=== PATIENT | female | born 1955 | race Caucasian/White ===

== ENCOUNTER → 2016-04-24 | Outpatient (CLI) | payer BC ==
[~2016-04-24] MED LIST: ALLGUNK; ATV1 PO; HYZUNK
[2016-04-24 11:46] LABS: BLOOD UREA NITROGEN 22 mg/dl (7-18); BUN/CREATININE RATIO 31.6 (10-20); CALCIUM 8.9 mg/dl (8.5-10.1); CARBON DIOXIDE 27 mmol/L (21-32); CHLORIDE 99 mmol/L (98-107); CHOLESTEROL 170 mg/dl (0-200); GLUCOSE 87 mg/dl (70-99); POTASSIUM 3.8 mmol/L (3.5-5.1); SODIUM 136 mmol/L (136-145); TRIGLYCERIDES 89 mg/dl (0-150); VERY LOW DENSITY LIPOPROT CALC 18 mg/dl
[2016-04-24 11:57] LABS: CHOLESTEROL/HDL RATIO 2.3; HDL CHOLESTEROL 74 mg/dl; LDL CHOLESTEROL CALCULATED 78 mg/dl
== END | disposition home or self-care (01) ==
LOC: C.LABBC 07:33
PROVIDERS: ATTEND Internal Medicine Geriatric Medicine
DX: E03.9 Hypothyroidism, unspecified (principal); I10 Essential (primary) hypertension; J45.909 Unspecified asthma, uncomplicated

== ENCOUNTER → 2016-05-29 | Outpatient (CLI) | payer BC ==
--- NOTE | 2016-05-30 10:56 | MAMMOGRAPHY REPORT ---
BILATERAL DIGITAL SCREENING MAMMOGRAM TOMOSYNTHESIS WITH CAD: 05/29/2016 CLINICAL HISTORY: Routine screening. Patient has no complaints. TECHNIQUE: Breast tomosynthesis in addition to standard 2D mammography was performed. Current study was also evaluated with a Computer Aided Detection (CAD) system. COMPARISON: Comparison is made to exams dated: 05/26/2015 mammogram, 12/05/2012 mammogram, 04/28/2014 m ammogram, 10/05/2011 mammogram, 09/09/2010 mammogram, and 07/12/2009 ultrasound - [facility]. BREAST COMPOSITION: The tissue of both breasts is heterogeneously dense, which may obscure small ma sses. FINDINGS: There are post operative findings in the right breast, with 2 stable linear metallic dens ities identified in the upper outer quadrant. No suspicious mass, architectural distortion or cluste r of microcalcifications is seen laterally. IMPRESSION: ACR BI-RADS CATEGORY 1: NEGATIVE There is no mammographic evidence of malignancy. A 1 year screening mammogram is recommended. The p atient will receive written notification of the results. Approximately 10% of breast cancers are not detected with mammography. A negative mammographic repor t should not delay biopsy if a clinically suggestive mass is present. Stacy Cm M.D. ay/:05/29/2016 18:02:35 Sample Tester Grinder: Qing MENDEZ(R)(M), [facility] letter sent: Normal 1/2 BI-RADS Code: ACR BI-RADS Category 1: Negative
== END | disposition home or self-care (01) ==
LOC: C.MAMM 08:35
PROVIDERS: ATTEND Internal Medicine Geriatric Medicine
DX: Z12.31 Encounter for screening mammogram for malignant neoplasm of breast (principal)

== ENCOUNTER → 2016-07-03 | Outpatient (CLI) | payer BC | END | disposition home or self-care (01) | LOC: C.PAPS 12:45 | PROVIDERS: ATTEND Obstetrics & Gynecology | DX: Z01.419 Encounter for gynecological examination (general) (routine) without abnormal findings (principal) ==

== ENCOUNTER → 2016-12-18 | Outpatient (CLI) | payer BC ==
--- NOTE | 2016-12-18 09:16 | DIAGNOSTIC IMAGING REPORT ---
CHEST 2 VIEWS ROUTINE CLINICAL HISTORY: 61 years-old Female presenting with J45.909 Asthma R05 Cough. TECHNIQUE: PA and lateral views of the chest were obtained. COMPARISON: 06/24/2014. FINDINGS: Atherosclerosis of aortic arch. Cardiac silhouette normal in size. Lungs and pleural spaces clear. Osseous structures normal. Upper abdomen normal. IMPRESSION: 1. No acute cardiopulmonary disease. Electronically signed by: Alfredo Horan M.D. 12/18/2016 9:15 AM Dictated Date/Time: 12/18/2016 9:15 AM
[2016-12-18 11:53] LABS: BLOOD UREA NITROGEN 17 mg/dl (7-18); BUN/CREATININE RATIO 24.9 (10-20); CALCIUM 9.3 mg/dl (8.5-10.1); CARBON DIOXIDE 28 mmol/L (21-32); CHLORIDE 94 mmol/L (98-107); CREATININE 0.67 mg/dl (0.60-1.20); GLUCOSE 111 mg/dl (70-99); POTASSIUM 3.6 mmol/L (3.5-5.1); SODIUM 131 mmol/L (136-145)
== END | disposition home or self-care (01) ==
LOC: C.RADBC 08:51
PROVIDERS: ATTEND Internal Medicine Geriatric Medicine
DX: J45.909 Unspecified asthma, uncomplicated (principal); R05 Cough; I10 Essential (primary) hypertension; Z11.59 Encounter for screening for other viral diseases; N95.1 Menopausal and female climacteric states

== ENCOUNTER → 2017-03-30 | Outpatient (CLI) | payer OTHER, BC | END | disposition home or self-care (01) | LOC: C.LAB1850 11:33 | PROVIDERS: ATTEND Obstetrics & Gynecology | DX: Z15.02 Genetic susceptibility to malignant neoplasm of ovary (principal) ==

== ENCOUNTER → 2017-05-04 | Outpatient (CLI) | payer OTHER, BC ==
--- NOTE | 2017-05-04 17:54 | DIAGNOSTIC IMAGING REPORT ---
LUMBAR SPINE MRI HISTORY: Back pain. Left leg pain. M54.16 Lumbar radiculopathy [id number] TECHNIQUE: Multiplanar multisequence MRI of the lumbar spine was performed without the use of contrast. COMPARISON: Lumbar spine 07/14/2015. FINDINGS: For the purpose of the report the L5-S1 disc space will be located on axial image 23 of 25. There is 2 mm of anterolisthesis of L4 and L5. Straightening of the lumbar spine. Mild to moderate facet degenerative changes at L4-L5 and L5-S1. The conus terminates at the T12-L1 disc space level. There is mild disc space narrowing and disc desiccation at L2-L3, L3-L4, L4-5, and L5-S1. 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 L1-L2: No significant central canal or neural foraminal narrowing. L2-L3: Small broad-based posterior disc bulge without significant central canal or neural foraminal narrowing. L3-L4: Small broad-based posterior disc bulge without significant central canal or neural foraminal narrowing. L4-L5: Broad-based posterior disc bulge, focal central disc protrusion, and significant ligamentum and facet hypertrophy resulting in severe central canal narrowing. The central canal measures a maximal diameter of 4 mm. This results in mass effect along the cauda equina at this level. The traversing nerve roots are tortuous and redundant due to the severe stenosis at this level. There is mild bilateral neural foraminal narrowing. L5-S1: Broad-based posterior disc bulge with a small left paracentral focal disc protrusion. This compresses the transiting left S1 nerve root. There is also mild to moderate bilateral neural foraminal narrowing. IMPRESSION: 1. Severe central canal stenosis at L4-L5 due to a broad-based posterior disc bulge, focal central disc protrusion, and ligamentum and facet hypertrophy. This results in mass effect along the cauda equina at this level. 2. Additional degenerative changes as described above. Electronically signed by: Álvaro Frausto M.D. 05/04/2017 5:53 PM Dictated Date/Time: 05/04/2017 5:41 PM
== END ==
LOC: C.MRIBC 16:33
PROVIDERS: ATTEND Physician Assistant Medical
DX: M54.16 Radiculopathy, lumbar region (principal); M48.061 Spinal stenosis, lumbar region without neurogenic claudication

== ENCOUNTER → 2017-07-17 | Outpatient (CLI) | payer OTHER, BC ==
[~2017-07-17] MED LIST changes: +ADVIN10/60 INH; -ALLGUNK; -ATV1 PO; +CLR10 PO; +CONJ0.3T3 PO; +HYZ/10015 PO; -HYZUNK; +IBUP-1459 PO; +SYN25 PO
== END | disposition home or self-care (01) ==
LOC: C.PAPS 11:42
PROVIDERS: ATTEND Obstetrics & Gynecology
DX: Z12.4 Encounter for screening for malignant neoplasm of cervix (principal)

== ENCOUNTER 2020-07-27 05:46 | Observation (INO) ==
--- NOTE | 2020-06-03 14:19 | PAT Medication Instructions ---
Medication Instructions Date of Service June 03, 2020 Home Medications Medication Instructions Recorded levothyroxine 25 mcg capsule 25 mcg PO QAM #90 cap 06/18/19 telmisartan 80 1 tab PO DAILY #90 tab 07/11/19 mg-hydrochlorothiazide 25 mg tablet benzonatate 200 mg capsule 200 mg PO TID PRN #30 cap 07/15/19 fluticasone 250 mcg-salmeterol 50 1 inh INH BID #60 ea 01/26/20 mcg/dose blistr powdr for inhalation amlodipine 10 mg tablet 10 mg PO DAILY #90 tab 02/26/20 albuterol sulfate 90 mcg/actuation 1 puff INH Q6H PRN #8 gm 03/22/20 aerosol inhaler fluticasone 500 mcg-salmeterol 50 1 inh INHALATION BID #60 ea 03/24/20 mcg/dose blistr powdr for inhalation hydrocodone 10 mg-chlorpheniramine 5 ml PO Q12H PRN #115 ml 03/24/20 8 mg/5 mL oral susp extend.rel 12hr meloxicam 15 mg tablet 15 mg PO DAILY #30 tab 03/24/20 3-in-1 Commode #1 ea 05/12/20 Wheeled Walker #1 ea 05/12/20 doxycycline hyclate 100 mg capsule 100 mg PO BID #20 cap 05/19/20 montelukast 10 mg tablet 10 mg PO QPM #30 tab 05/21/20 Probiotic 1 cap PO QPM ascorbate calcium (vitamin C) 500 mg tablet 500 mg PO QPM levothyroxine 25 mcg capsule 25 mcg PO QAM telmisartan 80 mg-hydrochlorothiazide 25 mg tablet 1 tab PO DAILY benzonatate 200 mg capsule 200 mg PO TID PRN fluticasone 250 mcg-salmeterol 50 mcg/dose blistr powdr for inhalation 1 inh INH BID amlodipine 10 mg tablet 10 mg PO DAILY albuterol sulfate 90 mcg/actuation aerosol inhaler 1 puff INH Q6H PRN fluticasone 500 mcg-salmeterol 50 mcg/dose blistr powdr for inhalation 1 inh INHALATION BID hydrocodone 10 mg-chlorpheniramine 8 mg/5 mL oral susp extend.rel 12hr 5 ml PO Q12H PRN meloxicam 15 mg tablet 15 mg PO DAILY doxycycline hyclate 100 mg capsule 100 mg PO BID montelukast 10 mg tablet 10 mg PO QPM Cbd Oil Gummies 1 dose PO QPM ascorbic acid-vitamin E-biotin [Hair, Skin, Nails with Biotin] 1 tab PO QPM cholecalciferol (vitamin D3) [Vitamin D3] 50 mcg PO QPM fexofenadine [Shabana] 180 mg PO QAM magnesium 500 mg PO QAM multivitamin 1 tab PO QPM potassium gluconate 595 mg PO QAM ASK your surgeon for instructions meloxicam 15 mg tablet 15 mg PO DAILY STOP taking 2 weeks before surgery If surgery is within 2 weeks, stop taking as soon as possible. ascorbic acid-vitamin E-biotin [Hair, Skin, Nails with Biotin] 1 tab PO QPM DO NOT take the morning of surgery telmisartan 80 mg-hydrochlorothiazide 25 mg tablet 1 tab PO DAILY benzonatate 200 mg capsule 200 mg PO TID PRN hydrocodone 10 mg-chlorpheniramine 8 mg/5 mL oral susp extend.rel 12hr 5 ml PO Q12H PRN doxycycline hyclate 100 mg capsule 100 mg PO BID fexofenadine [Shabana] 180 mg PO QAM magnesium 500 mg PO QAM potassium gluconate 595 mg PO QAM Take morning of surgery With a small sip of water, OTHERWISE NOTHING TO EAT OR DRINK AFTER MIDNIGHT: levothyroxine 25 mcg capsule 25 mcg PO QAM fluticasone 250 mcg-salmeterol 50 mcg/dose blistr powdr for inhalation 1 inh INH BID amlodipine 10 mg tablet 10 mg PO DAILY albuterol sulfate 90 mcg/actuation aerosol inhaler 1 puff INH Q6H PRN (if needed) fluticasone 500 mcg-salmeterol 50 mcg/dose blistr powdr for inhalation 1 inh INHALATION BID Take evening before surgery Probiotic 1 cap PO QPM ascorbate calcium (vitamin C) 500 mg tablet 500 mg PO QPM benzonatate 200 mg capsule 200 mg PO TID PRN (if needed) fluticasone 250 mcg-salmeterol 50 mcg/dose blistr powdr for inhalation 1 inh INH BID albuterol sulfate 90 mcg/actuation aerosol inhaler 1 puff INH Q6H PRN (if needed) fluticasone 500 mcg-salmeterol 50 mcg/dose blistr powdr for inhalation 1 inh INHALATION BID hydrocodone 10 mg-chlorpheniramine 8 mg/5 mL oral susp extend.rel 12hr 5 ml PO Q12H PRN (if needed) doxycycline hyclate 100 mg capsule 100 mg PO BID montelukast 10 mg tablet 10 mg PO QPM Cbd Oil Gummies 1 dose PO QPM cholecalciferol (vitamin D3) [Vitamin D3] 50 mcg PO QPM multivitamin 1 tab PO QPM Other Notes If you have any questions please call us at [phone] or [phone] or [phone] or [phone]
--- NOTE | 2020-06-07 08:59 | Anesthesiology Consultation ---
Date of Service June 07, 2020 Assessment & Plan (1) Encounter for pre-operative examination: COVID Status: As of 06/07 assessment, patient denies travel to endemic area, known exposure/sick contacts, or symptoms of COVID19. Patient instructed that they and their household members must follow strict social distancing guidelines, wear a mask in public and avoid travel/events/gatherings for 14 days prior to surgery. Preoperative COVID19 testing to be completed prior to surgery per surgeon's arrangements. Patient made aware to self-isolate as much as possible between COVID testing and surgery. Chart Review Chart Review: Acceptable Risk for Surgery and Patient seen in Pre Admission Testing Teaching & Discussion Instructed NPO after midnight before surgery, except medications with 15 cc of water. Medication instructions provided according to the PAT guidelines. History Surgery Operation Date: 07/02/20 10:55 Proposed Procedures p Left Total Hip Arthroplasty - Eh Hinton MD Height/Weight Height: 5 ft 2.5 in Weight: 63.8 kg Allergies Allergy/AdvReac Type Severity Reaction Status Date / Time clarithromycin [From Biaxin] Allergy Mild DRY COUGH Verified 05/25/20 12:00 Medications Home Medications Medication Instructions Recorded Confirmed Last Taken Probiotic 1 cap PO QPM 03/26/18 05/25/20 04/10/18 20:00 ascorbate calcium (vitamin C) 500 500 mg PO QPM 01/31/19 05/25/20 Unknown mg tablet levothyroxine 25 mcg capsule 25 mcg PO QAM #90 cap 06/18/19 05/25/20 Unknown telmisartan 80 1 tab PO DAILY #90 tab 07/11/19 05/25/20 Unknown mg-hydrochlorothiazide 25 mg tablet benzonatate 200 mg capsule 200 mg PO TID PRN #30 cap 07/15/19 05/25/20 Unknown fluticasone 250 mcg-salmeterol 50 1 inh INH BID #60 ea 01/26/20 05/25/20 Unknown mcg/dose blistr powdr for inhalation amlodipine 10 mg tablet 10 mg PO DAILY #90 tab 02/26/20 05/25/20 Unknown albuterol sulfate 90 mcg/actuation 1 puff INH Q6H PRN #8 gm 03/22/20 05/25/20 Unknown aerosol inhaler fluticasone 500 mcg-salmeterol 50 1 inh INHALATION BID #60 ea 03/24/20 05/25/20 Unknown mcg/dose blistr powdr for inhalation hydrocodone 10 mg-chlorpheniramine 5 ml PO Q12H PRN #115 ml 03/24/20 05/25/20 Unknown 8 mg/5 mL oral susp extend.rel 12hr meloxicam 15 mg tablet 15 mg PO DAILY #30 tab 03/24/20 05/25/20 Unknown 3-in-1 Commode #1 ea 05/12/20 05/12/20 Unknown Wheeled Walker #1 ea 05/12/20 05/12/20 Unknown doxycycline hyclate 100 mg capsule 100 mg PO BID #20 cap 05/19/20 Unknown montelukast 10 mg tablet 10 mg PO QPM #30 tab 05/21/20 05/25/20 Unknown Cbd Oil Gummies 1 dose PO QPM 05/25/20 05/25/20 Unknown ascorbic acid-vitamin E-biotin 1 tab PO QPM 05/25/20 05/25/20 Unknown [Hair, Skin, Nails with Biotin] cholecalciferol (vitamin D3) 50 mcg PO QPM 05/25/20 05/25/20 Unknown [Vitamin D3] fexofenadine [Shabana] 180 mg PO QAM 05/25/20 05/25/20 Unknown magnesium 500 mg PO QAM 05/25/20 05/25/20 Unknown multivitamin 1 tab PO QPM 05/25/20 05/25/20 Unknown potassium gluconate 595 mg PO QAM 05/25/20 05/25/20 Unknown Past Medical History Medical History (Updated 06/07/20 @ 09:03 by Jaciel Santiago) Allergic rhinitis Asthma "DURING WINTER MONTHS", USES ADVAIR INHALER DAILY, ALBUTEROL ONLY PRIOR TO EXERCISE. Hypertension Hypothyroidism Lumbar spinal stenosis Severe central stenosis at L4-5, multifactorial Osteoarthritis Protrusion of lumbar intervertebral disc Small left paracentral focal disc protrusion at L5-S1 compressing the transiting left S1 nerve root Exercise / Class Metabolic Activity II 4-5 Yardwork/Stairs/Walk up hill Past Family History Family History Sister Ovarian cancer Family history of diabetes mellitus Hypertension Father Coronary heart disease Mother Bladder cancer Hypertension Uncle Bladder cancer maternal Colorectal cancer maternal Other No family history of adverse response to anesthesia Past Surgical History Surgical History (Updated 05/25/20 @ 12:13 by Elizabeth Patel RN) History of arthroscopy KNEE ? SIDE History of colonoscopy History of hemilaminectomy History of lumpectomy of both breasts history of lumpectomy of RT/LEFT BREASTS (BENIGN) History of tooth extraction Hx of LASIK Previous section X 1 S/P tubal ligation Past Anesthesia History No Family Hx of Anesthesia Complications PATIENT HAD SPINAL HEADACHE AFTER C/S SAB. History of PONV No Hx of PONV and No Hx of Motion Sickness Social History Smoking Status: Never smoker Do You Dip or Chew Tobacco: No Hx Alcohol Use: Yes Alcohol type: beer alcohol intake frequency: a few times a month Hx Substance Use: No substance use type: does not use Review of Systems Pt denies any recent chest pain, shortness of breath, palpitations, cough, fever, URI, or uncontrolled acid reflux. +dyspnea/wheezing only due to baseline asthma, unchanged/stable. Physical Exam Vital Signs BP: 138/77 P: 80bpm SPO2: 98% RA T: 98.1 F R: 16 ENMT Mouth: + dental restorations (many crowns, one implant); no chipped teeth and no loose teeth Thyromental Distance: < 3.5 Finger Breadths (3) Mallampati Class: II Neck normal visual inspection; neck extension not limited Respiratory normal respiratory effort, lungs clear to auscultation Cardiovascular RRR, no murmur, no edema Testing Laboratory Results 06/07/20 09:09 06/07/20 09:09 PT 10.7 Seconds (9.0-12.0) 06/07/20 09:09 INR 1.1 (0.9-1.1) 06/07/20 09:09 APTT 27.7 Seconds (21.0-31.0) 06/07/20 09:09 Blood Type O Positive 06/07/20 09:09 Antibody Screen NEGATIVE 06/07/20 09:09 Electrocardiogram Date: 06/07/20 Findings: + NSR @ (74bpm) Biatrial enlargement. No significant change from 06/2011. Chest X-Ray Date: 06/07/20 Findings: + NAD
--- NOTE | 2020-06-07 09:35 | XRay Report ---
XR chest Pre-admission PA/Lat CLINICAL HISTORY: Preoperative chest COMPARISON STUDY: 2019 FINDINGS: The cardiac and mediastinal contours are normal. There is no evidence of focal pulmonary co nsolidation. There is no evidence of failure. No pleural effusions are visualized.[ IMPRESSION: No active disease in the chest. ACT 112: Negative or not required by law. Electronically signed by: Mj Estrada M.D. 06/07/2020 9:34 AM
[2020-06-07 09:39] LABS: Basophils # (auto) 0.13 K/uL (0-0.2); Basophils % (auto) 1.2 %; Eosinophils # (auto) 0.21 K/uL (0-0.5); Eosinophils % (auto) 1.9 %; Hematocrit (blood only) 40.6 % (37-47); Hemoglobin 13.9 g/dL (12.0-16.0); Immature Granulocytes # (auto) 0.02 K/uL (0.00-0.02); Immature Granulocytes % (auto) 0.2 %; Mean Corpuscular Hemoglobin 31.9 pg (25-34); Mean Corpuscular Hgb Conc 34.2 g/dL (32-36); Mean Corpuscular Volume 93.1 fL (80-100); Mean Platelet Volume 9.6 fL (7.4-10.4); Monocytes # (auto) 0.82 K/uL (0.11-0.59); Monocytes % (auto) 7.4 %; Neutrophils # (auto) 7.77 K/uL (1.4-6.5); Neutrophils % (auto) 70.3 %; Platelet Count 404 K/uL (130-400); RDW Coefficient of Variation 12.9 % (11.5-14.5); RDW Standard Deviation 44.2 fL (36.4-46.3); Red Blood Count 4.36 M/uL (4.2-5.4); White Blood Count 11.05 K/uL (4.8-10.8)
[2020-06-07 09:58] LABS: INR 1.1 (0.9-1.1); Partial Thromboplastin Ratio 1.1; Partial Thromboplastin Time 27.7 Seconds (21.0-31.0); Prothrombin Time 10.7 Seconds (9.0-12.0)
[2020-06-07 12:31] LABS: Calcium 9.2 mg/dl (8.5-10.1); Creatinine Clr Calc Pharmacy 59.6 ml/min; Est GFR (African American) 82.8; Est GFR (Non-African American) 71.4; Potassium 4.2 mmol/L (3.5-5.1)
--- NOTE | 2020-06-07 16:14 | Electrocardiogram Report ---
Test Reason : Blood Pressure : / mmHG Vent. Rate : 074 BPM Atrial Rate : 074 BPM P-R Int : 170 ms QRS Dur : 086 ms QT Int : 406 ms P-R-T Axes : 078 074 071 degrees QTc Int : 450 ms Normal sinus rhythm Biatrial enlargement Abnormal ECG When compared with ECG of 22-JUN-2011 07:51, No significant change was found Confirmed by Froylan Craig ([id number]) on 06/07/2020 4:14:19 PM Referred By: Eh Hinton Confirmed By:Octaviano Craig
--- NOTE | 2020-06-24 21:42 | History and Physical Report ---
DATE OF ADMISSION: 07/02/2020 CHIEF COMPLAINT: Left hip and groin pain. HISTORY OF PRESENT ILLNESS: The patient is a 65-year-old female who presents for surgical treatment of her left hip. She has about a 1-year history of gradual and progressively increasing left hip pain and discomfort that has gotten worse over time. She says this started out like a groin strain. She has been through therapy, which made her stronger, but did not help her pain at all. She has had several intra-articular hip injections, which provided significant relief, but only temporarily. She takes Mobic, which helps minimally. Pain has gradually gotten worse. This is keeping her from exercising, which she is not happy with. She would really like to have her hip fixed. No numbness or radicular symptoms. PAST MEDICAL HISTORY: 1. Hypertension. 2. Hypothyroidism. 3. Asthma. PAST SURGICAL HISTORY: Includes, 1. L5 disk surgery. 2. Knee surgery. ALLERGIES: None. CURRENT MEDICATIONS: 1. Norvasc. 2. Synthroid. 3. Telmisartan. SOCIAL HISTORY: Significant for a 65-year-old female. She is . Lives in [place]. FAMILY HISTORY: Noncontributory. REVIEW OF SYSTEMS: Negative for diabetes, neurologic problem, vascular problems, bleeding disorders. No chest pain or shortness of breath. No history of DVT or PE. She is currently being treated for bilateral carpal tunnel syndrome. PHYSICAL EXAMINATION: GENERAL: Shows a pleasant, middle-aged female. Looks to be in good health. HEENT: Benign. NECK: Supple, no lymphadenopathy. LUNGS: Clear to auscultation. HEART: Has a regular rate and rhythm. ABDOMEN: Soft, nontender, nondistended. EXTREMITIES: Grossly neurovascularly intact except as follows: Examination of left hip and leg reveals the patient walks with a slightly antalgic gait. Leg lengths are pretty equal. She has pain with hip motion and limited internal rotation to about neutral. Negative straight leg raise. She is neurologically intact. X-RAYS: X-rays of the left hip were reviewed. X-rays show advanced left hip arthritis. This has progressed significantly over the past 6 months to the point where she has got complete loss of her superior joint space. She has got [id number] disease. MRI: MRI of the hip was also reviewed. This shows advanced hip arthritis. ASSESSMENT: A 65-year-old female with advanced left hip degenerative joint disease that has gotten significantly worse over the past 6 months, both radiographically as well as clinically. She does have some underlying carpal tunnel syndrome as well. PLAN: We talked about treatment. She would like to get her hip fixed. We are going to proceed with a left total hip replacement. The risks and benefits of this procedure were explained to the patient including but not limited to DVT, PE, , infection, neurological injury, vascular injury, bleeding problem, pain, limited range of motion, stiffness, failure to relieve her symptoms, incomplete relief of symptoms, need for further surgery in the future, fracture, leg length inequality, nerve palsy, need for revision surgery. The patient understands and desires to proceed. Informed consent was obtained. As far as her hand symptoms, surgery can make the carpal tunnel syndrome worse. She did have a recent wrist injection and hopefully that will help her carpal tunnel symptoms through the surgery. As far as discharge plans, she is planning to be discharged to home using [facility].
--- NOTE | 2020-07-22 17:54 | History and Physical Report ---
DATE OF ADMISSION: 07/27/2020 CHIEF COMPLAINT: Persistent left hip and groin pain. HISTORY OF PRESENT ILLNESS: The patient is a 65-year-old female who presents for surgical treatment of her left hip. She has 1+ year history of increasing left hip pain and discomfort, describes it has gotten worse over time. She felt like this started as a groin strain and just has not gotten better. She has been through therapy, which made her stronger, but did not help with her pain. She had several intra-articular hip joint injection, which provided some temporary relief only. She takes Mobic, which did not help much at all. She continues to be bothered by the pain. This is keeping her from exercising, which affects her physically as well as emotionally. She would like to have her hip fixed. No back or radicular symptoms. She was previously scheduled for hip replacement surgery, but canceled due to COVID issues and now wants to proceed ahead. PAST MEDICAL HISTORY: 1. Hypertension. 2. Hypothyroidism. 3. Asthma. PAST SURGICAL HISTORY: Include: 1. Back surgery. 2. Knee surgery. ALLERGIES: None. CURRENT MEDICATIONS: Include: 1. Norvasc. 2. Synthroid. 3. Telmisartan. SOCIAL HISTORY: This is a 65-year-old female. She is . Lives in [place]. FAMILY HISTORY: Noncontributory. REVIEW OF HISTORY: Negative for diabetes, neurologic problem, vascular problems or bleeding disorders. No chest pain or shortness of breath. No history of DVT or PE. No known bleeding problems. PHYSICAL EXAMINATION: GENERAL: Reveals a pleasant, middle-aged female. Looks to be in pretty good health. HEENT: Benign. NECK: Supple, no lymphadenopathy. LUNGS: Clear to auscultation. HEART: Has a regular rate and rhythm. ABDOMEN: Soft, nontender, nondistended. EXTREMITIES: Grossly neurovascularly intact except as follows. Examination of the left hip and leg reveals the patient walks with a slightly antalgic gait. Leg lengths clinically appear pretty equal. She has pain with any type of hip motion. She has limited internal rotation to about neutral. Negative straight leg raise. She is neurologically intact. X-RAYS: X-rays of the left hip were reviewed. It shows advanced left hip DJD. She has got complete loss of the superior joint space. She has got [id number] disease. This has progressed significantly over the past 6 months. MRI of the hip was also reviewed, shows advanced left hip arthritis. ASSESSMENT: A 65-year-old female with advanced left hip degenerative joint disease. She has failed conservative treatment. It is affecting her quality of life. She was previously scheduled, but canceled due to the COVID epidemic and would now like to reschedule and get her hip fixed. Of note, she does have some underlying carpal tunnel syndrome as well. PLAN: We are going to proceed with a left total hip replacement. The risks and benefits of this procedure were explained to the patient including but not limited to DVT, PE, , infection, neurological injury, vascular injury, bleeding problem, pain, limited range of motion, stiffness, failure to relieve symptoms, fracture, leg length inequality, nerve palsy, dislocation, need for revision surgery, need for blood transfusion, etc. The patient understands and desires to proceed. Informed consent was obtained.
[~2020-07-27 05:46] MED LIST changes: +ACETAMINOPHEN 500 MG TAB PO SCH; -ADVIN10/60 INH; -CLR10 PO; -CONJ0.3T3 PO; +FAMOTIDINE 20 MG TAB PO SCH; +GABAPENTIN 600 MG DOSE PO SCH; -HYZ/10015 PO; -IBUP-1459 PO; +LR 500ML BOLUS, THEN 15ML/HR IV SCH; +LR 60ML/HR IV SCH; +METOCLOPRAMIDE HCL 10 MG TABLET PO SCH; +MISSING PHYSICIAN SIGNATURE ON ORDER SCH; -SYN25 PO; +Scopolamine 1 MG TDSY TD SCH; +Scopolamine CHECK PATCH PLACEMENT SCH; +TRANEXAMIC ACID 1,000 MG **IV Intra-op IV SCH; +ceFAZolin 2000MG 2,000 MG/15 ML SYR IV SCH
[2020-07-27] MEDS ORDERED: Scopolamine 1 MG TDSY TD SCH (06:00)
[2020-07-27] MEDS ORDERED: METOCLOPRAMIDE HCL 10 MG TABLET PO SCH (06:00)
[2020-07-27] MEDS ORDERED: LR 500ML BOLUS, THEN 15ML/HR IV SCH (06:00)
[2020-07-27] MEDS ORDERED: ceFAZolin 2000MG 2,000 MG/15 ML SYR IV SCH (06:00)
[2020-07-27] MEDS ORDERED: FAMOTIDINE 20 MG TAB PO SCH (06:00)
[2020-07-27] MEDS ORDERED: TRANEXAMIC ACID 1,000 MG **IV Pre-op IV SCH (06:00)
[2020-07-27] MEDS ORDERED: GABAPENTIN 600 MG DOSE PO SCH (06:00)
[2020-07-27] MEDS ORDERED: ACETAMINOPHEN 500 MG TAB PO SCH (06:00)
[2020-07-27] MEDS ORDERED: TRANEXAMIC ACID / 0.7% NACL 1000MG/100ML BAG IV ONE (06:37)
[2020-07-27] MEDS ORDERED: SCOPOLAMINE 1 MG TDSY TD ONE (06:38)
[2020-07-27] MEDS ORDERED: METOCLOPRAMIDE HCL 10 MG TABLET ONE (06:38)
[2020-07-27] MEDS ORDERED: GABAPENTIN 300 MG CAP ONE (06:38)
[2020-07-27] MEDS ORDERED: FAMOTIDINE 20 MG TAB ONE (06:38)
[2020-07-27] MEDS ORDERED: ACETAMINOPHEN 500 MG TAB ONE (06:38)
[2020-07-27] MEDS ORDERED: ceFAZolin 2,000 MG/15 ML IV PUSH IV ONE (06:39)
--- NOTE | 2020-07-27 06:57 | History & Physical Bridge Note ---
Date of Service July 27, 2020 History & Physical Bridge Note I have examined the patient, reviewed the History & Physical and in the interval since the performance of the History & Physical I have noted the following changes of clinical significance: no changes noted
[2020-07-27] MEDS ORDERED: BUPIVACAINE 0.5 % 5 MG/1 ML PF 10ML VIAL ONE (07:34)
[2020-07-27] MEDS ORDERED: MIDAZOLAM HCL 1 MG/ML 2ML VIAL ONE (08:21)
[2020-07-27] MEDS ORDERED: MoRPHine SULFATE PF 1 MG/ML 10 ML AMP/VIAL ONE (08:22)
[2020-07-27] MEDS ORDERED: BUPIVACAINE/EPINEPHRINE 0.5% MPF 1:200,000 30 ML VIAL ONE (08:33)
[2020-07-27] MEDS ORDERED: ePHEDrine sulfate 50 MG/ML AMP IV PRN ×2 (08:40)
[2020-07-27] MEDS ORDERED: NALOXONE HCL 1 MG in SODIUM CHLORIDE 0.9% 1000ML 1,000 ML IV PRN (08:40)
[2020-07-27] MEDS ORDERED: NALOXONE HCL 0.08 MG in SYRINGE 1.8 ML IV PRN (08:40)
[2020-07-27] MEDS ORDERED: NALOXONE HCL 0.4 MG/1 ML VIAL/CARP IV PRN ×2 (08:40→11:35)
[2020-07-27] MEDS ORDERED: PROMETHAZINE HCL 25 MG in SODIUM CHLORIDE 0.9% 50 ML IV PRN (08:40)
[2020-07-27] MEDS ORDERED: diphenhydrAMINE 50 MG/ML VIAL IV PRN (08:40)
[2020-07-27] MEDS ORDERED: HYDROmorphone INJ 2 MG/ML SYR/VIAL IV PRN (08:40)
[2020-07-27] MEDS ORDERED: fentaNYL citrate 100 MCG/2 ML VIAL IV PRN (08:40)
[2020-07-27] MEDS ORDERED: ATROPINE SULFATE 0.1 MG/ML 10ML SYR IV PRN (08:40)
[2020-07-27] MEDS ORDERED: MoRPHine SULFATE 2 MG/ML CARP IV PRN (08:40)
[2020-07-27] MEDS ORDERED: MoRPHine SULFATE PF 1 MG/ML 10 ML AMP/VIAL INT SPINAL ONE (08:40)
[2020-07-27] MEDS ORDERED: ONDANSETRON INJ 2 MG/ML 2 ML VIAL IV PRN ×2 (08:40)
[2020-07-27] MEDS ORDERED: LACTATED RINGER'S 500 ML IV PRN (08:40)
[2020-07-27] MEDS ORDERED: DC INTRASPINAL MORPHINE SCH (08:45)
[2020-07-27] MEDS ORDERED: SODIUM CHLORIDE 0.9% 1000ML 1,000 ML IV SCH ×2 (08:45→11:35)
[2020-07-27] MEDS ORDERED: NO NARCOTICS OR SEDATIVES SCH (08:45)
--- NOTE | 2020-07-27 09:16 | Anesthesiology Progress Note ---
Date of Service July 27, 2020 Anesthesia Post Procedure Vital Signs Vital Signs: Temp Pulse Resp BP Pulse Ox 07/27/20 06:13 36.8 C 92 H 18 174/93 H 96 Transfer of Care Handoff Completed per policy Notes Mental Status: alert / awake / arousable and participated in evaluation Patient Amnestic to Procedure: Yes Nausea / Vomiting: adequately controlled Pain: adequately controlled Airway Patency, RR, SpO2: stable & adequate BP & HR: stable & adequate Hydration State: stable & adequate Anesthetic Complications: no major complications apparent and Pt Satisfied with anesthetic care
[2020-07-27] MEDS ORDERED: ONDANSETRON INJ 2 MG/ML 2 ML VIAL ONE (09:24)
[2020-07-27] MEDS ORDERED: PROPOFOL IV EMULSION 10 MG/ML 20 ML VIAL IV ONE (09:24)
[2020-07-27] MEDS ORDERED: LIDOCAINE HCL 2% 2 ML VIAL/AMP(20MG/ML) INFIL ONE (09:24)
--- NOTE | 2020-07-27 10:32 | Operative Report ---
Post Operative Report Pre & Post Diagnosis Operation Date: 07/27/20 08:20 Pre-Op Diagnosis: Left Hip Advanced Degenerative Joint Disease Post-Op Diagnosis: Left Hip Advanced Degenerative Joint Disease I identified the patient and participated in the time-out.: Yes Procedure Operation Date: 07/27/20 08:20 Actual Procedures p Left Total Hip Arthroplasty--Uncemented(Left) - Eh Hinton MD Surgeon Eh Hinton MD Roll Hand ENRICO Carlos Estimated Blood Loss 150 Findings Consistent with Post-Op Diagnosis Operative findings were advanced left hip DJD. She had grade 4 [id number] disease of the femoral head and acetabulum. She had a moderate-sized medial as well as anterior acetabular osteophyte. Moderate-sized joint effusion. Anatomically she had a fairly short femoral neck. Fluids 1000 cc Specimens Left femoral head sent for pathology. Drains None. Anesthesia Type Spinal MAC Complications none Disposition Accompanied Patient To Recovery: Yes Disposition: Recovery Room Indications Patient is a 65-year-old female is had a several year history of increased left hip pain discomfort is gotten significantly worse over the past 6 months. X-ray showed progressive hip arthritis. She failed all conservative measures. She elected proceed with total hip arthroplasty. Description of Procedure Operative implants consist of: 1. Biomet G7 size 48 mm acetabular shell. 2. 6.5 cancellous acetabular screws 1 of 35 mm length by 20 mm length. 3. Wartrace hole toolmaker. 4. Highly cross-linked polyethylene liner with 48 mm outer diameter, 32 mm diameter with a gonzales placed inferior and posterior. 5. DePuy Corail size 8 short neck femoral stem. 6. +5/32 mm ceramic articular ball. The patient was taken to the operating room, identified, placed on the operating table supine position but all contact areas were properly padded. IV antibiotics 5 by anesthesia team. A spinal anesthetic had been implemented holding area. Villanueva catheter was placed in sterile fashion. The patient then placed in the right lateral decubitus position. An axillary roll was placed. Stulberg hip positioner was used for positioning. The left hip and leg were then prepped and draped in usual sterile fashion. A posterior lateral approach to the left hip was then performed through a curvilinear incision centered over the greater trochanter. Sharp dissection got through subcutaneous is down to the IT band gluteal fascia the IT band gluteal fascia then incised longitudinally in line with skin incision. The underlying greater bursa was excised. The piriformis and external rotators were tagged and taken off the posterior aspect of the hip joint capsule. Great care was taken throughout the procedure protect the sciatic nerve at all times. Hip was internally rotated and dislocated. A femoral neck osteotomy cut was made with Final Cut about 10 mm above the lesser trochanter. Femoral head was removed and sent for pathology. The femur was retracted anteriorly. Attention drawn the acetabulum. The acetabular labrum was excised. Pulmonary fat was excised. Sequential reaming the acetabular was then performed again with a size 43 and progressing up to 47. We did reamed just slightly with a 48 reamer and placed a 48 mm cup in about 40 degrees lateral opening and 20 degrees of anteversion. Was fixed with two 6.5 cancellous acetabular screws. An anterior acetabular osteophyte was removed. Trial liner was placed. Attention drawn the femur. The proximal femur was entered with a cookie-cutter followed by canal finder. I then broached begin the size 8. It took quite a bit of work to get the 8 broach down. I did not feel I could get any bigger stem down so we elected to trial this. The calcar reamer was used smooth and off the calcar. We then trialed the hip but with a standard neck was just too tight and too much offset and too much length. Therefore we went to the short neck. We placed a +1 head initially but the soft tissue tension was now too lax. With a +5/32 mm ceramic articular ball the hip was fully stable full extension and external rotation and flexion to 90 degrees internal rotation to about 50 degrees. I did elect to place a gonzales inferior and posterior to maximize her stability in flexion. We elect to place these implants. All trial implants were removed. An apex hole toolmaker was placed but highly cross-linked polyethylene liner with a gonzales placed inferior and posterior was impacted in position. A DePuy size 825 degree angle short neck stem was impacted in position. A +5/32 mm ceramic articular ball was placed. Hip was located once again found to be stable. Attention drawn toward closing. The wound was irrigated cups ounce of pulsatile lavage solution. I did inject locally with 60 cc of half percent Marcaine with epinephrine. The posterior capsule and external rotators were repaired through drill holes in the posterior trochanter with #2 Tycron suture. The IT band gluteal fascia then closed in 1 PDS suture running fashion for subcutaneous tissues then closed with 2 layers the deep layer #1 Vicryl suture and subcutaneous tissues with 2 Dexon suture in a buried interrupted fashion. Skin was closed skin michael. Leg was then cleaned dried and a sterile dressing both Xeroform, 4 x 4's, ABD pad, foam tape was applied. Patient then transferred to the recovery room in stable condition. The patient tolerated the procedure well and there were no complications. Reg Carlos, my physician food and nutrition services assistant, was present for the entire procedure. His assistance was essential and required for appropriate patient positioning, prepping and draping, surgical exposure, performing the technical details of the operation, placement the implants, closure of the wound, and placement of the sterile bandage. I attest to the content of the Intraoperative Record and any orders documented therein. Any exceptions are noted below.
--- NOTE | 2020-07-27 10:46 | Anesthesiology Progress Note ---
Date of Service July 27, 2020 Anesthesia Post Procedure Vital Signs Vital Signs: Temp Pulse Pulse Resp BP BP Pulse Ox 07/27/20 10:40 36.3 C L 82 18 129/72 99 07/27/20 10:30 81 18 119/65 98 07/27/20 10:22 36.3 C L 82 82 18 174/93 H 106/60 95 07/27/20 06:13 36.8 C 92 H 18 174/93 H 96 Transfer of Care Handoff Completed per policy Notes Mental Status: alert / awake / arousable and participated in evaluation Patient Amnestic to Procedure: Yes Nausea / Vomiting: adequately controlled Pain: adequately controlled Airway Patency, RR, SpO2: stable & adequate BP & HR: stable & adequate Hydration State: stable & adequate Anesthetic Complications: no major complications apparent and Pt Satisfied with anesthetic care
--- NOTE | 2020-07-27 10:56 | XRay Report ---
SINGLE VIEW PELVIS; SINGLE VIEW LEFT HIP CLINICAL HISTORY: Postoperative examination. FINDINGS: An AP portable view of the hips and pelvis with a crosstable lateral portable view of the l eft hip are obtained. No prior studies are available for comparison at the time of dictation. A bipol ar lower hip arthroplasty is in near-anatomic alignment. A single cortical lag screw transfixes the a cetabular cup. No acute fracture is identified. There are expected postoperative changes overlying th e left hip including skin clips, subcutaneous gas, and soft tissue swelling. IMPRESSION: Expected postoperative findings status post left hip arthroplasty. No acute fracture is s een. ACT 112: Negative or not required by law. Electronically signed by: Maurizio Villagomez M.D. 07/27/2020 10:54 AM
[2020-07-27] MEDS ORDERED: METOCLOPRAMIDE HCL INJ 5 MG/ML 2 ML VIAL IV PRN (11:35)
[2020-07-27] MEDS ORDERED: ALBUTEROL HFA 8 GM INHALER INH PRN (11:35)
[2020-07-27] MEDS ORDERED: MAGNESIUM HYDROXIDE SUSP 30 ML UDC PO PRN (11:35)
[2020-07-27] MEDS ORDERED: bisacodyL 10 MG SUPP PR PRN (11:35)
[2020-07-27] MEDS ORDERED: diphenhydrAMINE Capsule 25 MG CAP PO PRN (11:35)
[2020-07-27] MEDS ORDERED: ALUMINUM/MAGNESIUM SUSP 30 ML UDC PO PRN (11:35)
[2020-07-27] MEDS: ACETAMINOPHEN 500 MG TAB PO SCH ×2 (14:05→22:20)
[2020-07-27] MEDS: KETOROLAC 30 MG/ML VIAL IV SCH ×2 (14:06→19:45)
[2020-07-27] MEDS ORDERED: TRANEXAMIC ACID / 0.7% NACL 1,000 MG/100 ML BAG IV SCH (16:23)
[2020-07-27] MEDS: ASCORBIC ACID 500 MG TAB PO SCH (16:49)
[2020-07-27] MEDS: ceFAZolin 1000MG 1,000 MG/7.5 ML SYR IV SCH (16:52)
[2020-07-27] MEDS: DOCUSATE SODIUM 100 MG CAP PO SCH (19:47)
[2020-07-27] MEDS: ASPIRIN 81 MG ECTAB PO SCH (19:47)
[2020-07-27] MEDS ORDERED: CHOLECALCIFEROL 1,000 UNITS 25 MCG TAB PO SCH (21:00)
[2020-07-27] MEDS ORDERED: MONTELUKAST SODIUM 10 MG TABLET PO SCH (21:00)
[2020-07-27] MEDS ORDERED: SENNA 8.6 MG TAB PO SCH (21:00)
[2020-07-27] MEDS ORDERED: [UNRECOGNIZED DRUG - OTHER] PO SCH (21:00)
[2020-07-27] MEDS ORDERED: NON-FORMULARY MEDICATION (Ascorbic Acid-Vitamin E-Biotin [Hair, Skin, Nails With Biotin] 7 PO SCH (21:00)
[2020-07-27] MEDS ORDERED: MULTIVITAMIN CHEWABLE TAB PO SCH (21:00)
[2020-07-27] MEDS ORDERED: FLUTICASONE/SALMETEROL 250/50 (ADVAIR) 14 PUFF/1 INHALER INH SCH (21:00)
[2020-07-28] MEDS: KETOROLAC 30 MG/ML VIAL IV SCH ×2 (00:48→08:01)
[2020-07-28] MEDS: ceFAZolin 1000MG 1,000 MG/7.5 ML SYR IV SCH (00:48)
[2020-07-28] MEDS ORDERED: oxyCODONE HCL IR 5 MG TAB (IMMEDIATE RELEASE) PO PRN (02:40)
[2020-07-28] MEDS ORDERED: HYDROmorphone INJ 0.5 MG/0.5 ML SYR IV PRN (02:40)
[2020-07-28] MEDS ORDERED: ONDANSETRON INJ 2 MG/ML 2 ML VIAL IV PRN (02:40)
[2020-07-28] MEDS: ACETAMINOPHEN 500 MG TAB PO SCH (05:53)
[2020-07-28 06:15] LABS: Basophils # (auto) 0.06 K/uL (0-0.2); Basophils % (auto) 0.6 %; Eosinophils # (auto) 0.09 K/uL (0-0.5); Eosinophils % (auto) 0.9 %; Hematocrit (blood only) 31.8 % (37-47); Immature Granulocytes # (auto) 0.03 K/uL (0.00-0.02); Immature Granulocytes % (auto) 0.3 %; Lymphocytes # (auto) 1.77 K/uL (1.2-3.4); Lymphocytes % (auto) 16.9 %; Mean Corpuscular Hemoglobin 31.5 pg (25-34); Mean Corpuscular Hgb Conc 34.6 g/dL (32-36); Mean Corpuscular Volume 91.1 fL (80-100); Mean Platelet Volume 8.9 fL (7.4-10.4); Monocytes # (auto) 1.15 K/uL (0.11-0.59); Neutrophils # (auto) 7.37 K/uL (1.4-6.5); Neutrophils % (auto) 70.3 %; Platelet Count 308 K/uL (130-400); RDW Standard Deviation 43.5 fL (36.4-46.3); Red Blood Count 3.49 M/uL (4.2-5.4); White Blood Count 10.47 K/uL (4.8-10.8)
[2020-07-28] MEDS ORDERED: LEVOTHYROXINE SODIUM 25 MCG TABLET PO SCH (06:30)
[2020-07-28 06:47] LABS: BUN Creatinine Ratio 25.6 (10-20); Creatinine Clr Calc Pharmacy 101.4 ml/min; Est GFR (African American) 120.2; Est GFR (Non-African American) 103.7; Potassium 3.8 mmol/L (3.5-5.1)
[2020-07-28] MEDS ORDERED: dexAMETHasone 4 MG TAB PO SCH (08:00)
[2020-07-28] MEDS: ASPIRIN 81 MG ECTAB PO SCH (08:06)
[2020-07-28] MEDS: DOCUSATE SODIUM 100 MG CAP PO SCH (08:06)
[2020-07-28] MEDS: ASCORBIC ACID 500 MG TAB PO SCH (08:06)
[2020-07-28] MEDS ORDERED: FEXOFENADINE HCL 180 MG TAB PO SCH (09:00)
[2020-07-28] MEDS ORDERED: FLUTICASONE/VILANTEROL 200/25MCG 14 PUFFS/INHALER INH SCH (09:00)
[2020-07-28] MEDS ORDERED: TAPENTADOL HCL ER 50 MG TABCR PO SCH (09:00)
[2020-07-28] MEDS ORDERED: MULTIVITAMIN TAB PO SCH (09:00)
[2020-07-28] MEDS ORDERED: MAGNESIUM OXIDE 400 MG TAB PO SCH (09:00)
[2020-07-28] MEDS ORDERED: TELMISARTAN 40 MG TAB PO SCH (09:00)
[2020-07-28] MEDS ORDERED: amLODIPine BESYLATE 5 MG TAB PO SCH (09:00)
[2020-07-28] MEDS ORDERED: hydroCHLOROthiazide 25 MG TAB PO SCH (09:00)
--- NOTE | 2020-07-28 11:40 | Progress Notes ---
DATE: 07/28/2020 SUBJECTIVE: A 65-year-old white female postop day 1 from a left hip replacement. She is doing well. Therapy went well. Pain is controlled. No chest pain or shortness of breath. Not feeling dizzy or lightheaded. OBJECTIVE: VITAL SIGNS: Temperature is 36.7. Vital signs stable. GENERAL: Shows a pleasant, middle-aged female. She is sitting up in her bedside chair, looks comfortable. LUNGS: Clear to auscultation. HEART: Regular rate and rhythm. ABDOMEN: Soft, nontender, nondistended. EXTREMITIES: Grossly neurovascularly intact except as follows: Examination of the left leg reveals the dressing to be clean, dry and intact. Thigh is soft and supple. No detectable drainage. Her hip is located. She is neurologically intact. She can dorsiflex and plantarflex her foot appropriately. LABORATORY DATA: Hemoglobin 11.0. Hematocrit 31.8. Electrolytes are stable. Sodium is just a bit low. ASSESSMENT: A 65-year-old female postoperative day 1 from a left hip replacement, doing pretty well. She did well in therapy. Her pain is controlled. Hip is located. She is neurologically intact. PLAN: 1. DVT prophylaxis including thigh-high TEDs, SCDs, and aspirin twice a day. 2. PT/OT. Weight bear as tolerated. Left total hip protocol. 3. Pain control, doing well with current pain regimen. 4. Disposition: She is planning to be discharged to home with some home health likely later today as long as she does okay in therapy.
[2020-07-28] MEDS ORDERED: Scopolamine CHECK PATCH PLACEMENT SCH (16:00)
--- NOTE | 2020-08-02 08:37 | Discharge Summary ---
Date of Service August 02, 2020 Discharge Data Procedures Performed Operation Date: 07/27/20 08:20 Actual Procedures p Left Total Hip Arthroplasty--Uncemented(Left) - Eh Hinton MD Hospital Course (1) Status post total hip replacement, left: This patient is a 65 year old female admitted on 07/27/20 and underwent total hip arthroplasty. She tolerated the procedure well and there were no complications. Transferred to the PACU post op and later to the orthopedic floor for further care. She was given ancef for antibiotic prophylaxis. She was also given AUTUMN stockings, SCDs, and aspirin for DVT prophylaxis. Hemoglobin, hematocrit, and vital signs were monitored during her hospital stay and remained stable. Did not require any blood transfusions. There were no complications during her hospital stay. By post op day #1 the patient was tolerating a regular diet, pain was reasonably controlled with oral pain medicine, and she was participating in physical therapy. On post op day #1 the patient was discharged home and set up with home health care. She was given printed discharge instructions including prescriptions for extra strength tylenol, aspirin, and oxycodone. Continue physical therapy, weight bearing as tolerated. Continue hip precautions. Continue AUTUMN stockings. Follow up approximately 2 weeks post op or sooner if there are problems or concerns. Coding Level of Care Code None Diagnoses Status post total hip replacement, left Z96.642
== END 2020-07-28 11:19 | disposition home health service (06) ==
LOC: 3E 05:46 → ASU 05:46

== ENCOUNTER 2024-03-10 05:10 | Observation (INO) ==
--- NOTE | 2024-02-08 15:10 | PAT Medication Instructions ---
Medication Instructions Date of Service February 08, 2024 Home Medications Medication Instructions Recorded benzonatate 200 mg capsule 200 mg PO TID PRN cough #30 caps 12/08/22 levothyroxine 25 mcg capsule 25 mcg PO QAM #90 caps 07/13/23 albuterol sulfate 90 mcg/actuation 1 puff inhalation Q6H PRN 01/02/24 aerosol inhaler shortness of breath or wheezing #8 grams spironolactone 50 mg tablet 50 mg PO QAM #90 tabs 01/04/24 telmisartan 80 mg tablet 80 mg PO QAM #90 tabs 01/16/24 montelukast 10 mg tablet 10 mg PO QPM #90 tabs 02/08/24 (Singulair) Medication List: Cbd Oil Gummies 1 dose PO QPM multivitamin 1 tab PO QPM ascorbic acid 7.5 mg-vit E 7.5 unit-biotin 1,250 mcg chewable tablet (Hair,Skin,Nails with Biotin) 1 tab PO QPM loratadine 10 mg tablet (Claritin) 10 mg PO QAM cholecalciferol (vitamin D3) 125 mcg (5,000 unit) tablet (Vitamin D3) 125 mcg PO QPM benzonatate 200 mg capsule 200 mg PO TID PRN cough levothyroxine 25 mcg capsule 25 mcg PO QAM albuterol sulfate 90 mcg/actuation aerosol inhaler 1 puff inhalation Q6H PRN shortness of breath or wheezing spironolactone 50 mg tablet 50 mg PO QAM telmisartan 80 mg tablet 80 mg PO QAM amino acids (Amino Acid capsule) 6 cap PO DAILY coenzyme Q10 75 mg capsule (Ultra CoQ10) 75 mg PO DAILY magnesium 200 mg tablet 200 mg PO QPM amlodipine 10 mg tablet 10 mg PO QAM amoxicillin 500 mg tablet 2,000 mg PO UD atorvastatin 10 mg tablet 10 mg PO QAM budesonide-formoterol HFA 160 mcg-4.5 mcg/actuation aerosol inhaler 2 inh inhalation BID meloxicam 15 mg tablet 15 mg PO QPM Pain montelukast 10 mg tablet (Singulair) 10 mg PO QPM omeprazole 20 mg capsule,delayed release 20 mg PO QAM torsemide 10 mg tablet 10 mg PO QAM turmeric 400 mg capsule 400 mg PO BID MEDICATION INSTRUCTIONS: Continue as directed albuterol sulfate 90 mcg/actuation aerosol inhaler 1 puff inhalation Q6H PRN shortness of breath or wheezing (use if needed; BRING TO HOSPITAL) budesonide-formoterol HFA 160 mcg-4.5 mcg/actuation aerosol inhaler 2 inh inhalation BID amoxicillin 500 mg tablet 2,000 mg PO UD (dental prophylaxis) ASK your surgeon for instructions meloxicam 15 mg tablet 15 mg PO QPM Pain STOP taking 2 weeks before surgery ascorbic acid 7.5 mg-vit E 7.5 unit-biotin 1,250 mcg chewable tablet (Hair,Skin,Nails with Biotin) 1 tab PO QPM turmeric 400 mg capsule 400 mg PO BID coenzyme Q10 75 mg capsule (Ultra CoQ10) 75 mg PO DAILY DO NOT take the morning of surgery spironolactone 50 mg tablet 50 mg PO QAM loratadine 10 mg tablet (Claritin) 10 mg PO QAM telmisartan 80 mg tablet 80 mg PO QAM amino acids (Amino Acid capsule) 6 cap PO DAILY torsemide 10 mg tablet 10 mg PO QAM benzonatate 200 mg capsule 200 mg PO TID PRN cough Take morning of surgery With a small sip of water, OTHERWISE NOTHING TO EAT OR DRINK AFTER MIDNIGHT: amlodipine 10 mg tablet 10 mg PO QAM levothyroxine 25 mcg capsule 25 mcg PO QAM omeprazole 20 mg capsule,delayed release 20 mg PO QAM atorvastatin 10 mg tablet 10 mg PO QAM Take evening before surgery magnesium 200 mg tablet 200 mg PO QPM Cbd Oil Gummies 1 dose PO QPM multivitamin 1 tab PO QPM montelukast 10 mg tablet (Singulair) 10 mg PO QPM cholecalciferol (vitamin D3) 125 mcg (5,000 unit) tablet (Vitamin D3) 125 mcg PO QPM benzonatate 200 mg capsule 200 mg PO TID PRN cough Other Notes If you have any questions please call us at [phone] or [phone] or [phone] or [phone]
--- NOTE | 2024-02-19 08:22 | Anesthesiology Consultation ---
Date of Service February 19, 2024 Assessment & Plan (1) Encounter for pre-operative examination: Plan - SIADH: check BMP STAT am DOS, patient acceptable to proceed otherwise per Dr. Robb. Bolus not ordered-to anesthesiologist review of BMP DOS. - s/p left ROMY 07/27/20 SAB L3 4 attempts. Patient states she did well with this surgery and anesthesia. - Outpatient joint assessment: Patient is currently scheduled for inpatient pathway. If re-evaluated and patient/surgeon requests outpatient pathway, patient is acceptable candidate for outpatient joint program from anesthesia standpoint pending surgeon's office assessment of pt motivation/support/complet ion of same day joint program preop requirements. Chart Review Chart Review: Acceptable Risk for Surgery and Patient seen in Pre Admission Testing Teaching & Discussion Pre-Anesthesia Teaching/Discussion Notes: Instructed NPO after midnight before surgery, except medications with 15 cc of water. Medication instructions provided according to the PAT guidelines. History Surgery Operation Date: 03/10/24 07:00 Proposed Procedures p Left Total Knee Arthroplasty - Eh Hinton MD Height/Weight Height: 5 ft 2 in Weight: 58.6 kg Allergies Allergy/AdvReac Type Severity Reaction Status Date / Time clarithromycin [From Biaxin] AdvReac Mild DRY COUGH Verified 02/08/24 12:42 Medications Home Medications Medication Instructions Recorded Confirmed Last Taken Cbd Oil Gummies 1 dose PO QPM 05/25/20 02/08/24 07/19/21 multivitamin 1 tab PO QPM 05/25/20 02/08/24 07/19/21 ascorbic acid 7.5 mg-vit E 7.5 1 tab PO QPM 07/19/20 02/08/24 07/19/21 unit-biotin 1,250 mcg chewable tablet (Hair,Skin,Nails with Biotin) loratadine 10 mg tablet (Claritin) 10 mg PO QAM 05/17/21 02/08/24 07/19/21 cholecalciferol (vitamin D3) 125 125 mcg PO QPM 07/25/21 02/08/24 Unknown mcg (5,000 unit) tablet (Vitamin D3) benzonatate 200 mg capsule 200 mg PO TID PRN cough #30 caps 12/08/22 02/08/24 Unknown levothyroxine 25 mcg capsule 25 mcg PO QAM #90 caps 07/13/23 02/08/24 Unknown albuterol sulfate 90 mcg/actuation 1 puff inhalation Q6H PRN 01/02/24 02/08/24 Unknown aerosol inhaler shortness of breath or wheezing #8 grams spironolactone 50 mg tablet 50 mg PO QAM #90 tabs 01/04/24 02/08/24 Unknown telmisartan 80 mg tablet 80 mg PO QAM #90 tabs 01/16/24 02/08/24 Unknown amino acids (Amino Acid capsule) 6 cap PO DAILY 02/06/24 02/08/24 Unknown coenzyme Q10 75 mg capsule (Ultra 75 mg PO DAILY 02/06/24 02/08/24 Unknown CoQ10) magnesium 200 mg tablet 200 mg PO QPM 02/06/24 02/08/24 Unknown amlodipine 10 mg tablet 10 mg PO QAM 02/08/24 02/08/24 Unknown amoxicillin 500 mg tablet 2,000 mg PO UD 02/08/24 02/08/24 Unknown atorvastatin 10 mg tablet 10 mg PO QAM 02/08/24 02/08/24 Unknown budesonide-formoterol HFA 160 2 inh inhalation BID 02/08/24 02/08/24 Unknown mcg-4.5 mcg/actuation aerosol inhaler meloxicam 15 mg tablet 15 mg PO QPM Pain 02/08/24 02/08/24 Unknown montelukast 10 mg tablet 10 mg PO QPM #90 tabs 02/08/24 02/08/24 Unknown (Singulair) omeprazole 20 mg capsule,delayed 20 mg PO QAM 02/08/24 02/08/24 Unknown release torsemide 10 mg tablet 10 mg PO QAM 02/08/24 02/08/24 Unknown turmeric 400 mg capsule 400 mg PO BID 02/08/24 02/08/24 Unknown Past Medical History Medical History (Updated 02/19/24 @ 08:35 by Nereida Galloway PA-C) Allergic rhinitis Asthma during winter/cold months and exercise induced; on maintenance and prn albuterol inhaler; last albuterol inhaler use several weeks ago GERD (gastroesophageal reflux disease) controlled, stable per pt Hypothyroidism Lumbar radiculopathy Lumbar spinal stenosis Severe central stenosis at L4-5, multifactorial 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 Exercise / Class Metabolic Activity II 4-5 Yardwork/Stairs/Walk up hill (denies chest discomfort or shortness of breath with one flight of stairs) Past Family History Family History Sister Ovarian cancer Family history of diabetes mellitus Hypertension Father Coronary heart disease Myocardial infarction Mother Bladder cancer Hypertension Uncle Bladder cancer maternal Colorectal cancer maternal Other No family history of adverse response to anesthesia Denies family history of Prostate cancer Breast cancer Past Surgical History Surgical History (Updated 02/19/24 @ 08:37 by Nereida Galloway PA-C) History of anesthesia reaction for had headache for a week after spinal / no issue since History of arthroscopy knee, unsure which side History of carpal tunnel release of both wrists 2021- Dr Hinton History of colonoscopy History of ear surgery Left Osteointegrated Implant History of hemilaminectomy L5, left side, 01/16/18 History of left hip replacement 2020. Dr Hinton History of lumpectomy of both breasts history of lumpectomy of RT/LEFT BREASTS (BENIGN) History of tooth extraction Hx of LASIK Previous section X 1 S/P tubal ligation Status post Mohs surgery for squamous cell carcinoma in situ of skin Past Anesthesia History No Family Hx of Anesthesia Complications History of PONV No Hx of PONV and No Hx of Motion Sickness Social History Smoking Status: Never smoker Do You Dip or Chew Tobacco: No Hx Alcohol Use: Yes Alcohol type: beer and other alcohol intake frequency: holidays/special occasions only Alcohol Intake Frequency Comment: taylor otoole Hx Substance Use: No substance use type: does not use Review of Systems Snoring, denies witnessed apneas. Patient denies chest pain, shortness of breath, dyspnea on exertion, fever, chills, cough, wheezing, or palpitations. Physical Exam Vital Signs Vitals BP 147/95 P 80 TEMP 98.1 SP02 97% on RA RESP 18 Physical Patient resting comfortably in chair in no acute distress, alert and oriented, responding appropriately throughout visit Full cervical extension range of motion without pain TMD 3.5 finger breadths Mallampati Score 3 Dentition: several implants, bridges, caps and crowns and one chipped tooth, denies loose teeth Lungs: normal respiratory effort. Good air movement, clear throughout to auscultation, no adventitious breath sounds Cardiac: regular rate and rhythm, no murmurs noted Carotid arteries: negative bruit bilat Lab Results Anesthesia Preop Results Results Anesthesia Widget: WBC 9.36 K/ul (4.8-10.8) 02/19/24 Hgb 13.9 g/dl (12.0-16.0) 02/19/24 Hct 40.7 % (37.0-47.0) 02/19/24 Plt 372 K/uL (130-400) 02/19/24 Na 130 mmol/L (136-145) L 02/19/24 K 4.0 mmol/L (3.5-5.1) 02/19/24 Cl 92 mmol/L (98-107) L 02/19/24 CO2 29 mmol/L (21-32) 02/19/24 BUN 18 mg/dl (6-23) 02/19/24 Creat 0.67 mg/dl (0.6-1.2) 02/19/24 Glucose Level 87 mg/dl (70-99(Fasting)) 02/19/24 PT 10.4 Seconds (9.0-12.0) 02/19/24 PTT 30 Seconds (21-31) 02/19/24 INR 1.0 (0.9-1.1) 02/19/24 TSH 3.316 uIu/ml (0.300-4.500) 02/19/24 Blood Type O Positive 02/19/24 Antibody Screen NEGATIVE 02/19/24 Testing Electrocardiogram Date: 02/19/24 NSR, rate 74 bpm Chest X-Ray Date: 02/19/24 No acute cardiopulmonary findings.
--- NOTE | 2024-03-05 11:10 | History & Physical Report ---
Date of Service March 05, 2024 Assessment & Plan (1) Left knee DJD: 68-year-old female status post left hip replacement 3 and half years ago with advanced bilateral knee DJD left side more symptomatic than the right. She has failed conservative measures. She is ready to have her left knee replaced. She does have a history of SIADH and hyponatremia. Is to be some that needs followed postoperatively. Plan: We are going to take her to the operating room and do a left knee replacement. The risks Mente this procedure explained and she understands. Informed consent was obtained. Will to follow her sodium postoperatively. We may consider getting medicine consult to help us manage that. She needs a stat electrolyte analysis on the admission before surgery to check the sodium level. Will plan on using aspirin for DVT prophylaxis. She is planned to be discharged to home using the [facility] home health program. (2) SIADH (syndrome of inappropriate ADH production): (3) Chronic hyponatremia: (4) Resistant hypertension: (5) Hypothyroidism: History of Present Illness Chief Complaint: . Bilateral knee pain discomfort left side greater than the right. Primary Care Provider: Becca Caldwell MD . The patient is a 68-year-old female well-known to me from a previous left hip replacement done about 3 and half years ago. Her hips done well. Over the past several years she has developed increased pain discomfort in both knees. The left knee is a bit worse than the right. He has had injections which have become less successful over time. She had viscosupplementation which really did not help at all. Pains become more debilitating. It is starting to limit her activity significantly. Increased with weightbearing. She is like to have her right knee is fixed. Allergies Allergy/AdvReac Type Severity Reaction Status Date / Time clarithromycin [From Biaxin] AdvReac Mild DRY COUGH Verified 02/08/24 12:42 Home Medications Medication Instructions Recorded Confirmed Type Cbd Oil Gummies 1 dose PO QPM 05/25/20 02/08/24 History multivitamin 1 tab PO QPM 05/25/20 02/08/24 History ascorbic acid 7.5 mg-vit E 7.5 1 tab PO QPM 07/19/20 02/08/24 History unit-biotin 1,250 mcg chewable tablet (Hair,Skin,Nails with Biotin) loratadine 10 mg tablet (Claritin) 10 mg PO QAM 05/17/21 02/08/24 History cholecalciferol (vitamin D3) 125 125 mcg PO QPM 07/25/21 02/08/24 History mcg (5,000 unit) tablet (Vitamin D3) benzonatate 200 mg capsule 200 mg PO TID PRN cough #30 caps 12/08/22 02/08/24 Rx levothyroxine 25 mcg capsule 25 mcg PO QAM #90 caps 07/13/23 02/08/24 Rx albuterol sulfate 90 mcg/actuation 1 puff inhalation Q6H PRN 01/02/24 02/08/24 Rx aerosol inhaler shortness of breath or wheezing #8 grams spironolactone 50 mg tablet 50 mg PO QAM #90 tabs 01/04/24 02/08/24 Rx telmisartan 80 mg tablet 80 mg PO QAM #90 tabs 01/16/24 02/08/24 Rx amino acids (Amino Acid capsule) 6 cap PO DAILY 02/06/24 02/08/24 History coenzyme Q10 75 mg capsule (Ultra 75 mg PO DAILY 02/06/24 02/08/24 History CoQ10) magnesium 200 mg tablet 200 mg PO QPM 02/06/24 02/08/24 History amlodipine 10 mg tablet 10 mg PO QAM 02/08/24 02/08/24 History atorvastatin 10 mg tablet 10 mg PO QAM 02/08/24 02/08/24 History budesonide-formoterol HFA 160 2 inh inhalation BID 02/08/24 02/08/24 History mcg-4.5 mcg/actuation aerosol inhaler meloxicam 15 mg tablet 15 mg PO QPM Pain 02/08/24 02/08/24 History montelukast 10 mg tablet 10 mg PO QPM #90 tabs 02/08/24 02/08/24 Rx (Singulair) omeprazole 20 mg capsule,delayed 20 mg PO QAM 02/08/24 02/08/24 History release torsemide 10 mg tablet 10 mg PO QAM 02/08/24 02/08/24 History turmeric 400 mg capsule 400 mg PO BID 02/08/24 02/08/24 History amoxicillin 500 mg tablet 2,000 mg (4 x 500 mg) PO UD #4 tabs 02/29/24 Rx Past Med/Surg History Problem List Sensorineural hearing loss (SNHL) of right ear with restricted hearing of left ear Chronic hyponatremia SIADH (syndrome of inappropriate ADH production) Vitamin D deficiency Mild persistent asthma Resistant hypertension Left knee DJD Left knee pain Vertigo 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 with restricted hearing of right ear Osteoarthritis Allergic rhinitis Protrusion of lumbar intervertebral disc (Chronic) Small left paracentral focal disc protrusion at L5-S1 compressing the transiting left S1 nerve root Hypothyroidism (Chronic) Hypertension (Chronic) Medical History GERD (gastroesophageal reflux disease) controlled, stable per pt SIADH (syndrome of inappropriate ADH production) Hypothyroidism Allergic rhinitis 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 Dr Hinton History of ear surgery Left Osteointegrated Implant History of anesthesia reaction for had headache for a week after spinal / no issue since History of hemilaminectomy L5, left side, 01/16/18 S/P tubal ligation History of arthroscopy knee, unsure which side History of colonoscopy History of tooth extraction Hx of LASIK Previous section X 1 History of lumpectomy of both breasts history of lumpectomy of RT/LEFT BREASTS (BENIGN) Family History Sister Ovarian cancer Family history of diabetes mellitus Hypertension Father Coronary heart disease Myocardial infarction Mother Bladder cancer Hypertension Uncle Bladder cancer maternal Colorectal cancer maternal Other No family history of adverse response to anesthesia Denies family history of Prostate cancer Breast cancer Social History Smoking Status: Never smoker Second Hand Exposure: Yes (hx in the workplace years ago); Do You Dip or Chew Tobacco: No; Hx Alcohol Use: Yes Alcohol type: beer and other Hx Substance Use: No Preferred Language: Divehi Communication Ability: Effective Visual Impairment: No Limitations Hearing Ability: Normal Technical Services Analyst Required: No Beliefs That Will Affect Care: None marital status: Current Living Situation: Spouse current occupational status: retired Feels Safe at Home: Yes Childhood Exposure to Second-Hand Smoke: Yes caffeine: Yes Dental Care, Regularly: Yes Physical Activity Frequency: 5-6 Times per Week Seatbelt Use: always Sunscreen Use: Yes Assistive Devices: Hearing Aid - Right and Other Review of Systems All systems reviewed & are unremarkable except as noted in HPI & below. Physical Exam . Physical examination reveals a pleasant healthy middle-age female. She ambulates independently. She does seem to limp on the left side. She got varus alignment to both knees left side a bit worse than the right. Little bit of varus thrust with weightbearing as well. Range of motion is pretty symmetric with about 5 degrees short of full extension to 125 degrees of flexion bilaterally. No particular pain with hip motion. She is neurologically intact. Constitutional WD/WN, vitals as above Neck trachea midline, no thyromegaly Respiratory normal respiratory effort, lungs clear to auscultation Cardiovascular RRR, no murmur, no edema Gastrointestinal (Abdomen) normal bowel sounds, soft, nontender, no hepatosplenomegaly Results & Data Results & Data Laboratory Results . Diagnostic Findings . X-rays of the left knee were reviewed. She has advanced left knee DJD. She is got complete loss of medial joint space. She has a little bit of tibiofemoral subluxation. She has a little bit of collapse of the medial femoral condyle as well. PG Care Time/CCT Total # of Minutes Spent Total Time Spent with Patient: Total time spent is greater than 50% in coordination of care (as documented) at patient's floor/unit and/or counseling patient: Coding Level of Care Code None Diagnoses Left knee DJD M17.12 SIADH (syndrome of inappropriate ADH production) E22.2 Chronic hyponatremia E87.1 Resistant hypertension I1A.0 Hypothyroidism E03.9
[2024-03-10] MEDS: LR 60ML/HR IV SCH (05:55)
[2024-03-10] MEDS: METOCLOPRAMIDE HCL 10 MG TABLET PO SCH (05:55)
[2024-03-10] MEDS: ACETAMINOPHEN 500 MG TAB PO SCH ×2 (05:55→11:14)
[2024-03-10] MEDS: FAMOTIDINE 20 MG TAB PO SCH (05:55)
[2024-03-10] MEDS: CeleBREX 200 MG CAP PO SCH (05:55)
[2024-03-10 06:09] LABS: BUN Creatinine Ratio 38.1 (10-20); Calcium 9.4 mg/dl (8.6-10.3); Creatinine Clr Calc Pharmacy 69.5 ml/min
[2024-03-10] MEDS ORDERED: ROPIVACAINE 0.5% 5 MG/ML 30 ML VIAL ONE (06:24)
[2024-03-10] MEDS ORDERED: MIDAZOLAM HCL 1 MG/ML 2ML VIAL ONE (06:39)
[2024-03-10] MEDS ORDERED: fentaNYL citrate PF 100 MCG/2 ML VIAL ONE (06:39)
[2024-03-10] MEDS ORDERED: ATROPINE SULFATE 0.1 MG/ML 10ML SYR IV PRN (06:40)
[2024-03-10] MEDS ORDERED: HYDROmorphone INJ 1 MG/ML SYRINGE IV PRN (06:40)
[2024-03-10] MEDS ORDERED: ePHEDrine sulfate 50 MG/ML AMP IV PRN (06:40)
[2024-03-10] MEDS ORDERED: ONDANSETRON INJ 2 MG/ML 2 ML VIAL IV PRN (06:40)
[2024-03-10] MEDS ORDERED: fentaNYL citrate PF 100 MCG/2 ML VIAL IV PRN (06:40)
[2024-03-10] MEDS: dexAMETHasone**PF** 10 MG/ML VIAL ONE (06:43)
[2024-03-10] MEDS: dexAMETHasone**PF** 10 MG/ML VIAL IV ONE (06:48)
--- NOTE | 2024-03-10 06:52 | History & Physical Bridge Note ---
Date of Service March 10, 2024 History & Physical Bridge Note I have examined the patient, reviewed the History & Physical and in the interval since the performance of the History & Physical I have noted the following changes of clinical significance: no changes noted
[2024-03-10] MEDS: ceFAZolin 2000MG 2,000 MG/15 ML SYR IV SCH (07:02)
[2024-03-10] MEDS ORDERED: PROPOFOL IV EMULSION 10 MG/ML 20 ML VIAL IV ONE (07:24)
[2024-03-10] MEDS ORDERED: ONDANSETRON INJ 2 MG/ML 2 ML VIAL ONE (07:24)
[2024-03-10] MEDS: ORTHO JOINT ANESTHETIC ONE (07:31)
[2024-03-10] MEDS: TRANEXAMIC ACID 1,000 MG **IV Intra-op IV SCH (07:59)
[2024-03-10] MEDS: ROPIV 0.5% 246mg, Ketorolac 30mg, EPINEPHrine 0.5mg in NSS INFIL SCH (08:13)
[2024-03-10] MEDS ORDERED: KETOROLAC 30 MG/ML VIAL ONE (08:24)
--- NOTE | 2024-03-10 08:57 | Operative Report ---
PG Post Operative Report Pre & Post Diagnosis Operation Date: 03/10/24 07:00 Pre-Op Diagnosis: Left Knee Osteoarthritis Post-Op Diagnosis: Left Knee Osteoarthritis I identified the patient and participated in the time-out.: Yes Procedure Operation Date: 03/10/24 07:00 Actual Procedures p Left Total Knee Arthroplasty(Left) - Eh Hinton MD Surgeon Eh Hinton MD Scientific Software Engineer ENRICO Carlos Estimated Blood Loss 50 Findings Consistent with Post-Op Diagnosis Operative findings were advanced left knee DJD. She had pretty extensive grade 4 disease in all 3 compartments most severe in the medial side with complete eburnation of the entire medial compartment. She had a varus deformity to her knee. Moderate-sized knee joint effusion. Specimens Left knee sent for pathology. Anesthesia Type Spinal MAC Complications none Disposition Accompanied Patient To Recovery: No Indications Patient is a 68-year-old female whose had a several year history of increasing left knee pain discomfort described to gotten worse over time. She failed conservative measures. X-rays that revealed advanced left knee DJD. She elected proceed with total knee arthroplasty. Description of Procedure Operative implants consist of: 1. Biomet Vanguard size 60 left posterior stabilized femoral component. 2. Biomet size 63 tibial tray. 3. 14 mm posterior stabilized polyethylene insert. 4. 28 x 8 all poly patella. The patient was taken to the operating room, identified, placed on the operating table in the supine position. All contact areas were appropriately padded. IV antibiotics tried by anesthesia team. A spinal anesthetic and adductor canal block had been provided in the holding area. A Villanueva catheter was placed in a sterile fashion. A left thigh turn was then placed and the left lower extremity was then prepped and draped in the usual sterile fashion. The left leg was elevated and exsanguinated with use of an Esmarch and a turn was placed at 300 mmHg. An anterior approach to the left knee was then performed to longitudinal incision centered over the patella. Sharp dissection was got through subcutaneous tissue down the extensor mechanism. A medial parapatellar arthrotomy incision was made. Some subperiosteal dissection was carried out medially. The fat pad was resected from his patella tendon. The lateral patellofemoral ligament was released. Patella subluxated laterally and the knee was flexed. The osteophytes taken off distal femur. The ACL and PCL were then released and the distal femur the tibia subluxated anteriorly. The external tibial alignment jig was then placed on the anterior face the tibia and adjusted 14 mm medially. The proximal tibial cut was made remove about a millimeter or 2 of bone from most deficient aspect medial tibial plateau. The tibia sized to a size 63. Attention drawn the femur. The distal femur then with a sharp drill. Intramedullary canal was suction. A right 5 degree valgus cutting guide was placed. The distal femoral cutting block was pinned in place. Distal femoral cut was made to take an additional 3 mm of bone off distal femur. The femur was then sized to a size 60. The AP cutting block was pinned parallel to the epicondylar axis which was 5 degrees of external rotation. The anterior cut, anterior chamfer, posterior cut, posterior chamfer cuts were made. The box cutting guide was placed and just slight lateral and the box cut was made. The knee was flexed. The remnants of the medial and lateral menisci were excised. The osteophytes taken off the posterior aspect the femur. A trial femoral component was placed. The tibial tray was pinned Cary external rotation and the drill and stem point to use great defect in proximal tibia for the tibial tray. The knee was then trialed and the 14 mm insert fit most appropriately. Attention drawn the patella. The patella was cleaned of all soft tissues. Patella thickness measured 20 mm in thickness was cut down to 13. It was sized to a size 28 patella. The lug holes were drilled for the 28 patella. The lateral osteophytes removed. Patella button was placed. Knee was taken through range of motion and the patella tracked nicely with no thumbs test. Attention was then drawn toward placing the permanent components. All trial components were removed. Bone plug was placed into this femur limit blood loss. A double batch Palacos G cement was mixed. A Biomet Vanguard size 60 left posterior Byce femoral component, size 63 tibial tray, a 14 mm posterior Byce polyethylene insert, and a 28 x 8 all poly patella then cemented in place. The knee was brought out into full extension till cement hardened. Final cement check was then performed. The pericapsular tissues were injected with total of 100 cc of Ortho mix. The patient did receive 1 g tranexamic acid. The tourniquet was then let down for final treatment time of 59 minutes. Hemostasis assured use electrocautery. Extensor Metros then closed with combination 1 PDS suture and #1 Vicryl suture in a [id number] fashion. Extensor Meclomen was checked and found to be intact. The subcutaneous tissue then closed with 2 Dexon suture in a buried interrupted fashion skin was closed skin michael. Leg was then cleaned and dried and sterile dressed with Xeroform, 4 fours, sterile cast padding and To bandage were applied. Patient then transferred to the recovery room in stable condition. Patient tolerated the procedure well and there were no complications. Reg Carlos, my physician culture media laboratory assistant, was present for the entire procedure. His assistance was essential and required for appropriate patient positioning, prepping and draping, surgical exposure, performing the technical details of the operation, placement the implants, closure of the wound, and placement of the sterile bandage. I attest to the content of the Intraoperative Record and any orders documented therein. Any exceptions are noted below.
--- NOTE | 2024-03-10 09:30 | XRay Report ---
XR knee LT 1 or 2V routine CLINICAL HISTORY: Postoperative evaluation. COMPARISON: Left knee radiographs December 28, 2023. FINDINGS: Alignment of the total left knee arthroplasty is anatomic. There is no periprosthetic frac ture or unexpected radiopaque foreign body. There are skin michael. IMPRESSION: Expected findings following total left knee arthroplasty. ACT 112: Negative or not required by law. Electronically signed by: Kevin Estrada M.D. 03/10/2024 9:29 AM
--- NOTE | 2024-03-10 09:37 | Anesthesiology Progress Note ---
Date of Service March 10, 2024 Anesthesia Post Procedure Vital Signs Vital Signs: Temp Pulse Pulse Resp BP Pulse Ox O2 Del Method 03/10/24 09:30 36.4 C L 83 17 129/66 96 Room Air 03/10/24 09:20 82 20 125/67 98 Room Air 03/10/24 09:10 86 20 131/67 98 Oxymask 03/10/24 09:00 94 H 15 125/65 99 Oxymask 03/10/24 08:50 36.6 C 91 H 16 123/61 100 Oxymask 03/10/24 05:37 36.8 C 84 18 142/80 H 97 Room Air O2 Flow Rate 03/10/24 09:30 03/10/24 09:20 03/10/24 09:10 2 03/10/24 09:00 4 03/10/24 08:50 6 03/10/24 05:37 Transfer of Care Handoff Completed per policy Notes Mental Status: alert / awake / arousable and participated in evaluation Patient Amnestic to Procedure: Yes Nausea / Vomiting: adequately controlled Pain: adequately controlled Airway Patency, RR, SpO2: stable & adequate BP & HR: stable & adequate Hydration State: stable & adequate Neuraxial Anesthesia: was administered and sensory block is resolving Anesthetic Complications: no major complications apparent and Pt Satisfied with anesthetic care
[2024-03-10] MEDS ORDERED: diphenhydrAMINE Capsule 25 MG CAP PO PRN (09:56)
[2024-03-10] MEDS ORDERED: ALUMINUM/MAGNESIUM SUSP 30 ML UDC PO PRN (09:56)
[2024-03-10] MEDS ORDERED: BENZONATATE 100 MG CAPSULE PO PRN (09:56)
[2024-03-10] MEDS ORDERED: NON-FORMULARY MEDICATION (Coenzyme Q10 [Ultra Coq10] 75 mg capsule) PO SCH (09:56)
[2024-03-10] MEDS ORDERED: NALOXONE HCL 0.4 MG/1 ML VIAL/CARP IV PRN (09:56)
[2024-03-10] MEDS ORDERED: MAGNESIUM HYDROXIDE SUSP 30 ML UDC PO PRN (09:56)
[2024-03-10] MEDS ORDERED: METOCLOPRAMIDE HCL INJ 5 MG/ML 2 ML VIAL IV PRN (09:56)
[2024-03-10] MEDS ORDERED: NON-FORMULARY MEDICATION (Turmeric 400 mg Capsule) PO SCH (09:56)
[2024-03-10] MEDS ORDERED: ALBUTEROL HFA 8 GM INHALER INH PRN (09:56)
[2024-03-10] MEDS ORDERED: bisacodyL 10 MG SUPP PR PRN (09:56)
[2024-03-10 09:58] VITALS: RESP 16
[2024-03-10] MEDS: LEVOTHYROXINE SODIUM 25 MCG TABLET PO SCH (11:08)
[2024-03-10] MEDS: FLUTICASONE/VILANTEROL 200/25MCG 14 PUFFS/INHALER INH SCH (11:08)
[2024-03-10] MEDS: LOSARTAN POTASSIUM 50 MG TAB PO SCH (11:09)
[2024-03-10] MEDS: SENNA 8.6 MG TAB PO SCH ×2 (11:14→21:01)
[2024-03-10] MEDS: DOCUSATE SODIUM 100 MG CAP PO SCH (11:14)
[2024-03-10] MEDS: KETOROLAC TROMETHAMINE 15 MG/ML VIAL IV SCH (11:16)
[2024-03-10] MEDS: ATORVASTATIN 10 MG TAB PO SCH (11:21)
[2024-03-10] MEDS: amLODIPine BESYLATE 5 MG TAB PO SCH (11:21)
[2024-03-10] MEDS: TORSEMIDE 10 MG TAB PO SCH (11:22)
[2024-03-10] MEDS: MULTIVITAMIN TAB PO SCH (11:22)
[2024-03-10] MEDS: SPIRONOLACTONE 25 MG TAB PO SCH (11:23)
[2024-03-10] MEDS: PANTOprazole 40 MG TAB PO SCH (11:24)
[2024-03-10] MEDS: LORATADINE 10 MG TAB PO SCH (11:24)
[2024-03-10] MEDS: ASPIRIN 81 MG ECTAB PO SCH (11:25)
[2024-03-10] MEDS: TRANEXAMIC ACID / 0.7% NACL 1,000 MG/100 ML BAG IV SCH (15:02)
[2024-03-10] MEDS: ceFAZolin 1000MG 1,000 MG/7.5 ML SYR IV SCH (15:16)
[2024-03-10] MEDS: oxyCODONE HCL IR 5 MG TAB (IMMEDIATE RELEASE) PO PRN (15:57)
[2024-03-10] MEDS: ASCORBIC ACID 500 MG TAB PO SCH (17:14)
[2024-03-10] MEDS: TOCOPHERYL, DL-ALPHA 100 UNITS 45 MG CAP PO SCH (20:43)
[2024-03-10] MEDS: MONTELUKAST SODIUM 10 MG TABLET PO SCH (20:45)
[2024-03-10] MEDS: CHOLECALCIFEROL 125 MCG (5,000 UNITS) TAB PO SCH (20:45)
[2024-03-10] MEDS: MAGNESIUM OXIDE 400 MG TAB PO SCH (20:45)
[2024-03-10] MEDS ORDERED: NON-FORMULARY MEDICATION (Multivitamin Tablet,Chewable) PO SCH (21:00)
[2024-03-10] MEDS ORDERED: [UNRECOGNIZED DRUG - OTHER] PO SCH (21:00)
[2024-03-11] MEDS: ONDANSETRON INJ 2 MG/ML 2 ML VIAL IV PRN (03:08)
[2024-03-11] MEDS: HYDROmorphone INJ 0.5 MG/0.5 ML SYR IV PRN (05:43)
[2024-03-11 06:39] LABS: Hematocrit (blood only) 31.9 % (37.0-47.0); Hemoglobin 11.1 g/dl (12.0-16.0); Mean Corpuscular Hemoglobin 31.8 pg (25.0-34.0); Mean Corpuscular Hgb Conc 34.8 g/dL (32.0-36.0); Mean Corpuscular Volume 91.4 fL (80.0-100.0); Mean Platelet Volume 9.4 fL (9.4-12.4); Platelet Count 319 K/uL (130-400); RDW Coefficient of Variation 12.4 % (11.5-14.5); RDW Standard Deviation 41.7 fL (36.4-46.3); Red Blood Count 3.49 M/uL (4.20-5.40); White Blood Count 16.06 K/ul (4.8-10.8)
[2024-03-11 06:55] LABS: BUN Creatinine Ratio 28.8 (10-20); Creatinine Clr Calc Pharmacy 84.2 ml/min; Potassium 4.1 mmol/L (3.5-5.1)
--- NOTE | 2024-03-11 07:55 | Orthopedic Progress Note ---
Date of Service March 11, 2024 Assessment & Plan (1) Status post left knee replacement: Plan: 68-year-old female postop day 1 from left knee replacement doing pretty well. A little bit more painful last night but doing better this morning. She is neurologically intact. She does have SIADH history but the sodium looks pretty good today. Slightly low. Plan: 1. DVT prophylaxis including thigh-high thigh-high teds, SCDs, aspirin twice a day. 2. PT/OT. Weight-bear as tolerated left total knee protocol. 3. Pain control doing okay with current pain regimen. 4. Disposition. Plan to discharge to home with some home health later today if she does okay in therapy. Admission and Anticipated Discharge Date Admission Date: March 10, 2024 Subjective 68-year-old female postop day 1 from a left knee replacement. Had a little bit of a rougher night but doing better this morning. Denies any chest pain or shortness of breath. Just isolated knee and leg pain. It is improved. Physical Exam Physical Exam: Physical exam shows a pleasant middle-age female. Lying bed looks pretty comfortable this morning. Examination left leg reveals the dressing be clean dry and intact. She can dorsiflex and plantarflex her foot appropriately. She is neurologically intact. Respiratory: normal respiratory effort, lungs clear to auscultation Cardiovascular: RRR, no murmur, no edema Gastrointestinal (Abdomen): normal bowel sounds, soft, nontender, no hepatosplenomegaly Results & Data Vital Signs (Past 12 Hours) Vital Signs Temp Pulse Resp BP Pulse Ox O2 Del Method 03/11/24 03:00 36.5 C 90 16 173/77 H 99 Room Air 03/10/24 23:00 36.6 C 86 16 167/76 H 99 Room Air Laboratory Results Hemoglobin is 11.1. Hematocrit 31.9. Electrolytes are stable. Sodium slightly low at 133 but not unusual for her.
[2024-03-11 08:13] VITALS: BP 146/76; TEMP 98.4
[2024-03-11 08:24] VITALS: PULSE 87; O2SAT 98
[2024-03-11] MEDS: dexAMETHasone 10 MG in SYRINGE 0 ML IV SCH (08:24)
== END 2024-03-11 10:42 | disposition home health service (06) ==
LOC: 3E 05:10 → ASU 05:10